=== PATIENT | female | born 2000 ===

== ENCOUNTER 2021-10-30 10:30 | Outpatient (CLI) | payer OTHER, SELFPAY ==
--- NOTE | ~2021-10-30 | US_ITS ---
EXAMINATION: US OB follow up DATE: 10/30/2021 11:20 INDICATION: Encounter for supervision of normal . TECHNIQUE: Real-time ultrasound of the pelvis was performed. COMPARISON: None. FINDINGS: There is a single living fetus in vertex presentation. The placenta is posterior. heart rate i s 148 beats per minute (bpm). The amniotic fluid index is 13.4 cm, which is normal. The following biometric data were obtained: Biparietal diameter (BPD): 8.5 cm; head circumference (HC): 30.8 cm; abdominal circumference (AC): 32 .6 cm; femur length (FL): 7.1 cm. These measurements are concordant. Estimated weight is 2828 g +/- 424 g, which correlates with 39th percentile when 11/23/21 is us ed as estimated date of delivery. As single measurements, these parameters are each equal to the following estimated gestational ages: BPD: 34 weeks 0 days. HC: 34 weeks 3 days. AC: 36 weeks 4 days. FL: 36 weeks 4 days. estimated gestational age based solely on measurements from this exam is 35 weeks 3 days +/- 2 weeks 3 days. IMPRESSION: 1. Single living fetus in vertex presentation. 2. Estimated weight is 2828 g +/- 424 g, which correlates with 39th percentile when 11/23/21 i s used as estimated date of delivery. Reviewed, dictated and finalized at location A. VISION TECHNICIAN IMPRESSION: 1. Single living fetus in vertex presentation. 2. Estimated weight is 2828 g +/- 424 g, which correlates with 39th perc entile when 11/23/21 is used as estimated date of delivery.
== END 2021-10-30 10:31 | disposition home or self-care (01) ==
LOC: ANHIMG 10:34
PROVIDERS: Visit Provider Obstetrics & Gynecology
DX: Z34.83 Encounter for supervision of other normal pregnancy, third trimester (principal); Z3A.35 35 weeks gestation of pregnancy
CPT/HCPCS: 76816